=== PATIENT | male | born 1970 | race Hispanic/Latino ===

== ENCOUNTER 2020-01-02 12:57 | Day surgery (SDC) | payer BC ==
--- NOTE | ~2020-01-02 | OR ---
[facility] [address], [place] [address] Draft DATE OF OPERATION: 01/02/2020 SURGEON: Megan Rincon MD PREOPERATIVE DIAGNOSES: 1. Colon screening. 2. Right inguinal pain without clinical evidence of hernia. POSTOPERATIVE DIAGNOSES: 1. Polyp of rectosigmoid. 2. Mild inflammation of cecum and sigmoid (biopsied). PROCEDURE: Total colonoscopy to cecum with cold morcellation polypectomy x1 and biopsy of cecum and sigmoid. ANESTHESIA: Intravenous sedation, fentanyl 150 mcg, Versed 6 mg. INDICATION: This 49-year-old man is a patient of Oscar Burnett of [place], [place]. He is referred for screening colonoscopy. Notably, he had a colonoscopy performed at age 26 (which was normal) related to an abdominal pain workup at that time. He has no family history of colon cancer and he is aware of. He also has had some right groin pain. Clinical examination shows no sign of hernia, though the patient does have persisting pain there. He is admitted at this time to undergo colonoscopy. He understands the risks of bleeding, infection, and perforation. FINDINGS: The prep was adequate. Complete colonoscopy was undertaken to the cecum without question. He had mild edematous changes of the cecum, not specifically severe colitis by any means, but biopsy was obtained to assess this more fully. Additionally, there were a few areas in the sigmoid that had similar findings, probably of no consequence and possibly even related to scope trauma, but these were biopsied as well. He clearly had an adenomatous polyp of the rectosigmoid, which was excised completely. It was about 5 mm in size. The remaining colon was normal. DESCRIPTION OF PROCEDURE: The patient was brought to the endoscopy suite and placed in lateral decubitus position, given intravenous sedation to the point of slurred speech and nystagmus with full PATIENT NAME: SUZAN PEREZ OPERATIVE REPORT DATE OF : 68 REPORT #: [id number] PHYSICIAN: MEGAN RINCON MD PCP: OSCAR BURNETT PA-C REPORT IS CONFIDENTIAL AND NOT TO BE RELEASED WITHOUT AUTHORIZATION [facility] [address], [place] [address] Draft cardiopulmonary monitoring. Digital rectal examination was normal including the prostate. An Olympus video colonoscope was passed in the rectum and manipulated throughout the colon ultimately intubating the cecum. The ileocecal valve was normal, but the mucosa of the cecum was somewhat edematous. There was no sign of ulceration or anything of that sort. Biopsies were obtained of the cecum. The scope was then withdrawn. Examination throughout showed no sign of abnormality until the sigmoid where a few areas of similar edema and scuffing were noted. Perhaps, this was related to the scope itself, it was uncertain. Biopsies were obtained there as well. The scope was further withdrawn at the rectosigmoid, it was an adenomatous polyp about 5 mm in size. This was excised with cold morcellation technique. Retroflexed view of the rectum was normal. Scope was removed. The patient was taken to the recovery room in good condition. CONCLUDING DIAGNOSIS: Polyp of rectosigmoid. Other areas of inflammation, probably inconsequential and clinically insignificant. PLAN: We will see him back in the office in 4 weeks or so. We will reexamine for hernia as he does have persisting pain and also review his pathology report at that time. In general terms, we would recommend repeat colonoscopy in 3 years based on the polyp we have excised. MD SHIVAM Cadena/MIKAYLA /[id number] cc: Oscar Burnett [place], [place] Copies: ~ PATIENT NAME: SUZAN PEREZ OPERATIVE REPORT DATE OF : 68 REPORT #: [id number] PHYSICIAN: MEGAN RINCON MD PCP: OSCAR BURNETT PA-C REPORT IS CONFIDENTIAL AND NOT TO BE RELEASED WITHOUT AUTHORIZATION
[~2020-01-02 12:57] MED LIST: CITALOPRAM HBR20 MG PO; ZESTRIL10 MG PO
--- NOTE | 2020-01-02 15:17 | NUR ---
01/02/20 1517 Yanira Olson 1426- PT TO PACU IN LL POSITION. EYES CLOSED. RESPONDS TO VERBAL AND TACTILE STIMULI. BREATHING EASY AND UNLABORED. SPO2 >90% ON 3 L O2 VIA NC. FALLS QUICKLY BACK TO SLEEP. 1432- PT ARROUSES TO VERBAL STIMULI. NODS HEAD YES/NO APPROPRIATELY. DENIES PAIN AND NAUSEA. SPO2 >90% ON 3 L O2 VIA NC. PT PREFERS TO SPEAK WITH YAKUT WITH LACEY HOGUE. 1445- PT AROUSES TO VOICE, BUT FALLS QUICKLY BACK TO SLEEP. O2 TITRATED DOWN TO ROOM AIR. SP02 >90%. VSS. 1458- PT REPORTS PAIN, LOWER ABODMEN. PT ENCOURAGED TO PASS GAS. ABDOMEN SOFT. RATES PAIN 12/11. 1504- PT REPOSITIONED ON LEFT SIDE AND ENCOURAGED, AGAIN, TO PASS GAS. VSS. PRIVACY PROVIDED. 1510- PT PASSING EXCESSIVE AMOUNTS OF GAS. BREATHING EASY AND UNLABORED SPO2 >90% ON ROOM AIR. PT RESTING COMFORTABLY IN LL POSITION. WILL CONTINUE TO MONITOR.
--- NOTE | 2020-01-03 13:21 | PATH ---
[facility] [address], [place] [address] Signed SPECIMEN(S): A CECUM SPECIMEN(S): B SIGMOID SPECIMEN(S): C RECTOSIGMOID POLYP SPECIMEN SOURCE: A. CECUM B. SIGMOID C. RECTOSIGMOID POLYP CLINICAL HISTORY: Screening colonoscopy. Postop: Polyp, mild inflammation x 2. MICROSCOPIC DESCRIPTION: Histologic sections of all submitted blocks are examined by light microscopy. These findings, together with the gross examination, support the pathologic diagnosis. FINAL PATHOLOGIC DIAGNOSIS: A. Cecum, biopsy: - Benign colonic mucosa with slight polypoid features. - Negative for dysplasia or specific diagnostic abnormality. B. Sigmoid, biopsy: - Benign colonic mucosa negative for pathologic inflammation. - Incidental melanosis coli. C. Rectosigmoid polyp, biopsy: - Hyperplastic polyp (2 fragments). JVR:cml:[id number] GROSS DESCRIPTION: Three specimens are received in three containers, labeled "HS." A. The specimen, labeled "HS," and designated on the requisition "cecum biopsy," is received in formalin and consists of three fragments of pink-herring tissue (0.5 x 0.2 x 0.2 cm in aggregate). The specimen is submitted entirely in cassette (A1). B. The specimen, labeled "HS," and designated on the requisition "sigmoid biopsy," is received in formalin and consists of one fragment of pink-herring tissue (0.4 x 0.1 x 0.1 cm). The specimen is submitted entirely in cassette (B1). C. The specimen, labeled "HS," and designated on the requisition "rectosigmoid polypectomy," is received in formalin and consists of two fragments of pink-herring tissue (0.5 x 0.3 x 0.3 cm in aggregate). The specimen is submitted entirely in cassette (C1). PATIENT NAME: SUZAN PEREZ PATHOLOGY DATE OF : 68 REPORT #: [id number] PHYSICIAN: TERESO IVEY PCP: OSCAR SALDANA PA-C REPORT IS CONFIDENTIAL AND NOT TO BE RELEASED WITHOUT AUTHORIZATION [facility] [address] [place] [id number] Signed AC (under the direct supervision of a pathologist) The Gross Description was prepared using a voice recognition system. The report was reviewed for accuracy; however, sound-alike word errors, addition and/or deletions may occur. If there is any question about this report, please contact Client Services. PERFORMING LABORATORY: The technical component was performed by [facility], [address] [place] [address] (Recruit Instructor: Jyoti Reyez MD; CLIA# [id number]). Professional interpretation [place] [address] (Recruit Instructor: Vineet Hansen M.D.). Diagnostician: Vineet Hansen MD Pathologist Electronically Signed 01/03/2020 Copies: ~ PATIENT NAME: SUZAN PEREZ PATHOLOGY DATE OF : 68 REPORT #: [id number] PHYSICIAN: TERESO IVEY PCP: OSCAR SALDANA PA-C REPORT IS CONFIDENTIAL AND NOT TO BE RELEASED WITHOUT AUTHORIZATION
== END 2020-01-02 15:45 | disposition home or self-care (01) ==
LOC: OPS 12:57 → DS 14:00 → OPS 14:00
PROVIDERS: Surgery
PROC: 0DBN8ZZ Excision of Sigmoid Colon, Via Natural or Artificial Opening Endoscopic (ICD-10-PCS; 2020-01-02)
PROC: 0DBH8ZX Excision of Cecum, Via Natural or Artificial Opening Endoscopic, Diagnostic (ICD-10-PCS; principal; 2020-01-02 14:00)
DX: Z12.11 Encounter for screening for malignant neoplasm of colon (principal); K63.5 Polyp of colon; K63.89 Other specified diseases of intestine; I10 Essential (primary) hypertension; F32.9 Major depressive disorder, single episode, unspecified; Z79.899 Other long term (current) drug therapy; Z80.0 Family history of malignant neoplasm of digestive organs
CPT/HCPCS: 99153; G0500; J2250; J3010; J7121